=== PATIENT | male | born 1985 | race Hispanic/Latino ===

== ENCOUNTER 2024-02-19 22:30 | Emergency (ER) | payer SELFPAY ==
[2024-02-19 22:31] VITALS: BP 163/97
[2024-02-19 22:47] LABS: % Basophils 0.2 % (0-2); % Eosinophils 0.8 % (0-6); % Immature Granulocytes 0.3 % (0-0.5); % Lymphocytes 33.3 % (20.5-51.1); % Neutrophils 59.4 % (42.2-75.2); Absolute Eosinophils 0.1 10^3/uL (0-0.7); Absolute Lymphocytes 3.5 10^3/uL (1.2-3.4); Absolute Monocytes 0.6 10^3/uL (0.1-0.6); Absolute Neutrophils 6.2 10^3/uL (1.4-6.5); Hematocrit 44.6 % (39.0-52.0); Hemoglobin 15.4 g/dL (13.0-18.0); Mean Corp Hgb Conc. 34.5 g/dL (33.0-37.0); Mean Corpuscular Volume 89.7 fL (80.0-94.0); Mean Platelet Volume 10.3 fL (7.4-10.4); Nucleated Red Blood Cells % 0 % (-); Platelet Count 152 10^3/uL (130-400); Red Blood Cell Count 4.97 10^6/uL (4.70-6.10); Red Cell Dist. Width 12.8 % (11.5-14.5); White Blood Cell Count 10.4 10^3/uL (4.8-10.8)
[2024-02-19 22:48] LABS: Urine Albumin Negative (Neg - Trace); Urine Bilirubin Negative (Negative); Urine Character Clear (Clear); Urine Color Straw; Urine Glucose Negative (Negative); Urine Ketone Negative (Negative); Urine Leukocyte Negative (Negative); Urine Nitrite Negative (Negative); Urine Occult Blood Negative (Negative); Urine Specific Gravity 1.005 (<1.030); Urine Urobilinogen Negative (Neg - 1+)
[2024-02-19 23:00] LABS: ALT (SGPT) 19 U/L (0-50); AST (SGOT) 28 U/L (17-59); Albumin 4.6 g/dl (3.5-5.0); Alkaline Phosphatase 71 U/L (38-126); Blood Urea Nitrogen 25 mg/dl (9-20); Calcium 9.5 mg/dl (8.4-10.2); Carbon Dioxide 30 mmol/L (22-30); Chloride 101 mmol/L (98-107); Glucose 102 mg/dl (70-99); Lipase 120 U/L (23-300); Potassium 3.6 mmol/L (3.5-5.1); Sodium 136 mmol/L (135-145); Total Bilirubin 0.4 mg/dl (0.2-1.3); Total Protein 7.8 g/dl (6.3-8.2); eGFR > 60.00
[2024-02-19 23:50] VITALS: BP 145/92
[2024-02-19 23:51] VITALS: BMI 25.7
--- NOTE | 2024-02-20 00:23 | ED.GENMED ---
History of Present Illness
General
Chief Complaint: Abdominal Pain
Source: patient
Exam Limitations: none
Time Seen by Provider: 02/19/24 23:35
Travel History
Have you had any contact with someone who has COVID-19?: No
Do you have any symptoms of coronavirus? Fever > 100 degrees, chills, cough, shortness of breath, sore throat, loss of taste or smell, muscle aches, or headache?: No
History of Present Illness
History of Present Illness:
This is a 38 year old male that comes in with c/ol frequent urination and urinating in little amounts. States that he has some discomfort with he urinates. Stats that that this started yesterday. States that also sometimes when he eats to much pizza
or Burgers he gets RUQ discomfort. Patient has not upper abd pain at this time. Denies any fever, chills, chest pain, SOB, nausea, vomiting, dairrhea, headache, dizziness, urinary burning.
Past History
Past History
ED Past Medical History: None; Negative Asthma, HTN, Hypercholesterolemia or NIDDM
ED Past Surgical History: None
Social History
Tobacco: Non-smoker
Alcohol: Occasional
Personal: Single
Living: alone
Review of Systems
Review of Systems
All Other Systems: ROS reviewed and negative except as documented in HPI and ROS
Constitutional: Reports no symptoms; Denies fever or chills
EENT: Reports no symptoms
Respiratory: Reports no symptoms; Denies cough or trouble breathing
Cardiac: Reports no symptoms; Denies chest pain
ABD/GI: Reports abdominal pain (suprapubic discomfort); Denies nausea, vomiting or diarrhea
: Reports other (Voiding in small amounts); Denies dysuria, frequency or urgency
Musculoskeletal: Reports no symptoms
Skin: Reports no symptoms
Neurological: Reports no symptoms; Denies dizzy or headache
Psychiatric: Reports no symptoms
Phy Exam
General Physical Exam
General Presentation: well appearing and no apparent distress
General age: appears stated age
General Skin: warm and dry
General Habitus: normal
General Mental: alert
General Hydration: appears well hydrated
ENT Exam
ENT Exam: TM's normal, pharynx normal and neck supple
Eye Exam
Eye Exam: EOMI
Cardiovascular Exam
Cardiovascular Exam: regular rate/rhythm, no edema, no murmur and normal peripheral pulses
Pulmonary Exam
Pulmonary Exam: lungs clear, no respiratory distress, no rales, chest non tender, no crackles, no rhonchi, no wheezing and no cough
Gastrointestinal Exam
Gastrointestinal Exam: normal bowel sounds, non tender, soft, no organomegaly, no pulsatile mass and non distended
Musculoskeletal Exam
Musculoskeletal Exam: full ROM and no edema
Skin Exam
Skin Exam: normal color, warm/dry, no rash and no petechia
Psychiatric Exam
Psychiatric Exam: normal mood/affect
Course
Orders/Labs/Results
Orders:
Orders
02/19/24 22:42
Complete Blood Count/With Diff Urgent
Comprehensive Metabolic Panel Urgent
Lipase Urgent
Urinalysis Reflex To Culture Urgent
Date Specimen was Collected: 02/19/24
Time Specimen was Collected: 22:35
Abnormal Lab Results
02/19/24
22:42
Absolute Lymphs (auto) 3.5 H 10^3/uL
(1.2-3.4)
BUN 25 H mg/dl
(9-20)
Glucose 102 H mg/dl
(70-99)
02/19/24 22:42
02/19/24 22:42
Dehydration. Glucose nonfasting. Lipase normal at 120, Urine negative for infection.
Vital Signs
Initial and Last Documented VS:
Initial Vital Signs
Temp Pulse Resp BP Pulse Ox
98.8 F 80 18 163/97 99
02/19/24 22:31 02/19/24 22:31 02/19/24 22:31 02/19/24 22:31 02/19/24 22:31
Last Documented Vital Signs
Temp Pulse Resp BP Pulse Ox
98.8 F 80 18 145/92 100
02/19/24 22:31 02/19/24 22:31 02/19/24 22:31 02/19/24 23:50 02/19/24 23:55
MDM/Problems Addressed
Differential Diagnosis Includes:
Cystitis, UTI
MDM/Problems Addressed:
This is a 38 year old male that comes in with c/o suprapubic discomfort and voiding in small amounts.
Explained to patient that his blood work shows dehydration and his urine is negative for infection. Explained that this could be a cystitis. Encouraged patient to increased his water intake, and decrease any caffeine intake. Patient to follow up
with the Urologist for further evaluation. Patient can take Tylenol or ibuprofen for any discomfort. Return with any concerns.
Chronic conditions affecting care:
NA
Acute Exacerbation and/or Progression of Chronic Illness:
NA
*Pulse Oximetry
Patient hypoxic: no
*EKG
Interpreted by ED Provider?: NA
Rate: EKG- N/A
*Video Poker Floorman Interpretation
Rate: Video Poker Floorman- N/A
*Critical Care Note
Total Time (30-74mins, 75-104mins- exclusive of procedures): Not Applicable
ED Attending Note
-
Portions of this chart may have been created with voice recognition software.� Occasional wrong word or��sound alike� substitutions may have occurred due to the inherent limitations of voice recognition software.
Discharge Plan
Departure
Patient Disposition: Home (Routine Discharge)
Date of Disposition: 02/20/24
Time of Disposition: 00:32
Patient with high blood pressure during this ER visit?: Yes
Condition: Good
Covid-19: Not Applicable
Discharge Problem:
Possible Cystitis
Instructions: Bladder Pain Syndrome (Interstitial Cystitis) (DC), BLOOD PRESSURE
Referrals:
Toni Jordan MD [Active] - Call in 1-3 days for appt
NONE,* [Family Provider] -
Activity Restrictions/Additional Instructions:
As discussed, your blood work shows that you are dehydrated. Please increase your water intake to 8-8oz glasses daily. Your Urine is negative for infection. This is possible a cystitis. Please stay away form caffeine as this is very irritating to
the bladder lining. Follow up with the Urologist for further evaluation. You may use Tylenol 650mg every 4 hours as needed for pain and or Ibuprofen 600mg every 6 hours with food for pain. IF YOU YOU HAVE ANY OTHER CONCERNS PLEASE RETURN TO THE
EMERGENCY ROOM.
Interventions
Interventions:
*Risk Screen - Suicide Last Done: 02/19/24 22:31
*General Assessment Last Done: 02/19/24 22:31
*Neglect/Abuse Screening Last Done: 02/19/24 22:31
ED- Fall Risk Assessment Last Done: 02/19/24 23:55
*ED COVID-19 Vaccine History Last Done: 02/19/24 23:56
EN-Fgowar-Nkxlecpfuh Assessment Last Done: 02/19/24 23:54
Discharge Date and Time
Print Language: TRINIDADIAN
== END 2024-02-20 00:44 | disposition home or self-care (01) ==
LOC: EMR 22:30
PROVIDERS: EMERGENCY PHYSICIAN Emergency Medicine
DX: R35.0 Frequency of micturition (principal); R10.9 Unspecified abdominal pain; E86.0 Dehydration; I10 Essential (primary) hypertension
CPT/HCPCS: 99283; 80053; 81003; 83690; 85025; 87491; 87591